=== PATIENT | female | born 1970 | race Caucasian/White ===

== ENCOUNTER 2016-10-06 18:05 | Emergency (ER) | payer BC ==
--- NOTE | 2016-10-06 18:26 | ERNOTE ---
Lower Extremity HPI - General Time Seen by Provider: 10/06/16 18:12 Source: patient Exam Limitations: no limitations - Immun/Allergies/Home Medications Immunizations: IMMUNIZATION HX Immunizations Up to Date No History of Influenza Vaccine No Hx Pneumococcal Vaccination No Allergies/Adverse Reactions: Allergies Allergy/AdvReac Type Severity Reaction Status Date / Time aspirin Allergy Intermediate Hives Verified 10/06/16 18:09 ibuprofen Allergy Intermediate Hives Verified 10/06/16 18:09 NSAIDS (Non-Steroidal Allergy Intermediate Hives Verified 10/06/16 18:09 Anti-Inflamma Home Medications: HOME MEDICATIONS Cholecalciferol [Vitamin D] 10,000 unit PO HS 12/11/15 [Last Taken Unknown] Cyanocobalamin (Vitamin B-12) [Vitamin B12] 5,000 mcg SC ONCE 12/11/15 [Last Taken Unknown] Enalapril/Hydrochlorothiazide [Enalapril-Hctz 5-12.5 mg Tab] 1 each PO DAILY 12/18 [Last Taken Unknown] Fexofenadine HCl [Madisyn Allergy] 180 mg PO BID 12/11/15 [Last Taken Unknown] Meclizine HCl [Antivert] 25 mg PO QID PRN 12/11/15 [Last Taken Unknown] Norethindrone AC-Eth Estradiol [Microgestin] 1 each PO DAILY 12/11/15 [Last Taken Unknown] Potassium 99 mg PO BID 12/11/15 [Last Taken Unknown] Ranitidine HCl [Zantac] 150 mg PO BID 12/11/15 [Last Taken Unknown] Rizatriptan Benzoate [Maxalt] 10 mg PO BID PRN 12/11/15 [Last Taken Unknown] - History of Present Illness Narrative: This patient presents to the emergency room complaining of pain in her left little toe. Approximately 3 hours ago patient stubbed her left little toe against a hard surface. She noticed her toe slightly deformed with a bump on it then patient states that the bump disappeared and she still has pain in her left little toe. She has a history of neuropathy. She has taken no medication for this. Review of Systems - Review of Systems Constitutional: Present: no symptoms reported EYE: Present: no symptoms reported ENT: Present: no symptoms reported Cardiology: Present: no symptoms reported Gastrointestinal/Abdominal: Present: no symptoms reported Genitourinary: Present: no symptoms reported Musculoskeletal: Present: See HPI Skin: Present: no symptoms reported Neurological: Present: no symptoms reported - Patient's Past Medical History Patient History - Medical: Other Patient History - Cardiac/Respiratory: Hypertension Patient History - Cancer: No Hx of Cancer Patient History - Surgical Procedures: Cholecystectomy, D & C, T & A, Other Patient History - Other: None - Social History Living Situations: home Abuse History: No History of abuse Psych History: No pertinent hx Smoking Status: Never smoker Have you smoked in the past 12 months: No Do you dip or chew tobacco: No Alcohol Use: rarely Drug Use: none - Immunizations Immunizations Up to Date: No Hx Pneumococcal Vaccination: No History of Influenza Vaccine: No Physical Exam - Physical Exam General Appearance: Present: wd/wn, alert, no apparent distress Neck: Present: normal inspection Respiratory: Present: no respiratory distress, normal breath sounds, no accessory muscle use, chest nontender, lungs clear Cardiovascular/Chest: Present: regular rate, rhythm, no murmur, normal peripheral pulses Extremity Exam: Present: other - there is slight ecchymosis at the base of the left little toe but this examiner does not appreciate any deformity the area is tender to palpation. Neurological Exam: Present: alert, oriented, normal mood/affect, no motor/ sensory deficits ED Progress - Vital Signs Vital Signs: Vital Signs 10/06/16 18:10 Temperature 36.7 C Pulse Rate 75 Respiratory 17 Rate Blood Pressure 135/109 O2 Sat by Pulse 98 Oximetry - Progress/Reassessment Chief Complaint: Lower Extremity Pain/ Injury Plan - Plan Plan: Patient's x-ray does not reveal an obvious fracture and it was read as negative by the radiologist. At this time we will evelin tape the toe and treat the patient for pain and contusion of toe she is to follow up with her primary care doctor. For pain control patient will be given 6 [place] tablets at this time and she is to follow-up with her regular doctors. Departure Clinical Impression: Contusion, toe Qualifiers: Encounter type: initial encounter Toe: lesser toe Damage to nail status: without damage Laterality: left Qualified Code(s): S90.122A - Contusion of left lesser toe(s) without damage to nail, initial encounter - Departure Disposition: Home self-care Condition: Good Instructions: Foot Contusion Referrals: Will Padgett MD [Primary Care Provider] -
[2016-10-06] MEDS ORDERED: HYDROcodone/ACETAMINOPHEN 1 EACH TABLET PO ONE (18:52)
[2016-10-06] MEDS ORDERED: HYDROcodone/ACETAMINOPHEN 1 EACH TABLET ONE (18:54)
[2016-10-06 19:02] VITALS: BP 124/72
== END 2016-10-06 19:00 | disposition home or self-care (01) ==
LOC: ER 18:05
DX: S90.122A Contusion of left lesser toe(s) without damage to nail, initial encounter (principal); X58.XXXA Exposure to other specified factors, initial encounter; Y93.9 Activity, unspecified; Y92.89 Other specified places as the place of occurrence of the external cause; I10 Essential (primary) hypertension